=== PATIENT | female | born 1980 | race Caucasian/White ===

== ENCOUNTER 2018-07-31 14:19 | Outpatient (CLI) | payer OTHER ==
--- NOTE | 2018-08-01 10:05 | MMO ---
BILATERAL DIGITAL SCREENING MAMMOGRAMS: HISTORY: This 37-year-old female who presents for digital screening mammography. COMPARISON: 06/15/09. FINDINGS: This patient's mammogram is interpreted with the assistance of computer-aided detection. Bilateral breast augmentation prostheses are noted. Stable typically benign calcification in the rig ht breast. No direct or indirect evidence of malignancy. IMPRESSION: BIRADS II BENIGN POS: [id number]
== END 2018-07-31 14:20 | disposition home or self-care (01) ==
LOC: SCSMAMMO 14:19
PROVIDERS: ATTEND Obstetrics & Gynecology
DX: Z12.31 Encounter for screening mammogram for malignant neoplasm of breast (principal)
CPT/HCPCS: 77067